=== PATIENT | male | born 1965 | race Caucasian/White ===

== ENCOUNTER → 2016-07-29 | Outpatient (CLI) | payer BC ==
--- NOTE | 2016-07-29 09:17 | DIAGNOSTIC IMAGING REPORT ---
ABDOMEN COMPLETE (US) CLINICAL HISTORY: ABD PAIN generalized abdominal pain COMPARISON STUDY: No previous studies for comparison. FINDINGS: The liver is slightly echogenic, K nonspecific finding most often seen in hepatic steatosis. There is presumed focal fatty sparing adjacent to the gallbladder. Multiple gallstones are visualized. There is no significant gallbladder wall thickening and no evidence of pericholecystic fluid. The pancreas is poorly visualized. Spleen measures 10.4 cm in length. The right kidney measures 12.9 cm in length. The left kidney measured 12.3 cm in length. There is no hydronephrosis. There is a possible duplex collecting system on the left. There is a 7 mm left renal cyst. The common bile duct measured 4 mm. No abnormalities of the IVC or aorta are visualized. IMPRESSION: 1. Nondiagnostic evaluation of the pancreas 2. Cholelithiasis. No evidence of ductal dilatation 3. Increased hepatic echogenicity, a nonspecific finding most often seen in hepatic steatosis Electronically signed by: Ashkan Laura M.D. 07/29/2016 9:15 AM Dictated Date/Time: 07/29/2016 9:13 AM
[2016-07-29 09:33] LABS: BASO % 0.5 %; BASO ABS # 0.03 K/uL (0-0.2); COMPLETE YES; EOS % 2.6 %; HEMATOCRIT 43.2 % (42-52); IG% 0.3 %; LYMPH % 25.6 %; LYMPH ABS # 1.69 K/uL (1.2-3.4); MEAN CELL VOLUME 86.2 fL (80-100); MEAN CORPUSCULAR HEMOGLOBIN 29.5 pg (25-34); MEAN CORPUSCULAR HGB CONC 34.3 g/dl (32-36); MEAN PLATELET VOLUME 10.7 fL (7.4-10.4); PLATELET COUNT 233 K/uL (130-400); RED BLOOD COUNT 5.01 M/uL (4.7-6.1); WHITE BLOOD COUNT 6.59 K/uL (4.8-10.8)
[2016-07-29 09:45] LABS: ALT/SGPT 35 U/L (12-78); AMYLASE 67 U/L (25-115); AST/SGOT 11 U/L (15-37); BLOOD UREA NITROGEN 17 mg/dl (7-18); BUN/CREATININE RATIO 15.1 (10-20); CARBON DIOXIDE 28 mmol/L (21-32); CHLORIDE 108 mmol/L (98-107); CHOLESTEROL 195 mg/dl (0-200); GLUCOSE 106 mg/dl (70-99); POTASSIUM 4.2 mmol/L (3.5-5.1); SODIUM 142 mmol/L (136-145); TRIGLYCERIDES 378 mg/dl (0-150); VERY LOW DENSITY LIPOPROT CALC 76 mg/dl
[2016-07-29 09:51] LABS: ALB/GLOB RATIO 1.2 (0.9-2); ALKALINE PHOSPHATASE 74 U/L (45-117); HDL CHOLESTEROL 39 mg/dl; LDL CHOLESTEROL CALCULATED 80 mg/dl
[2016-07-29 10:16] LABS: CALCIUM 9.4 mg/dl (8.5-10.1)
== END | disposition home or self-care (01) ==
LOC: C.ULTR 07:41
PROVIDERS: ATTEND Family Medicine
DX: R10.10 Upper abdominal pain, unspecified (principal); K80.20 Calculus of gallbladder without cholecystitis without obstruction

== ENCOUNTER → 2016-08-04 | Outpatient (CLI) | payer BC ==
[~2016-08-04] MED LIST: FEXOFENADINE HCL 60 MG TAB ONE; NURSING VERBAL MED ORDER ONE; OPTIRAY 320 IV PRN
--- NOTE | 2016-08-04 12:58 | DIAGNOSTIC IMAGING REPORT ---
ADDENDUM Addendum: It has come to my attention that the patient developed a "scratchy" throat following the administration of intravenous contrast. The patient was assessed by another radiologist. No edema or erythema was visualized. There was no shortness of breath. The patient was observed for one hour by the radiology nurse. There were no complications. The patient was discharged to home. Electronically signed by: Ashkan Laura M.D. 08/04/2016 2:19 PM Dictated Date/Time: 08/04/2016 2:[address] ABD/PELVIS IV AND ORAL CONT CLINICAL HISTORY: Postprandial left-sided upper abdominal pain COMPARISON STUDY: Ultrasound study dated 07/29/2016 TECHNIQUE: Following the IV administration of 94 mL of Optiray-320, CT scan of the abdomen and pelvis was performed from the lung bases to the proximal femurs. Images are reviewed in the axial, sagittal, and coronal planes. IV contrast was administered without complication. CT DOSE: 1133.37 mGycm FINDINGS: Lower chest: There are minimal basilar atelectatic changes. No pleural effusions are visualized. Liver: There is mild hepatic steatosis. No focal masses are visualized. Gallbladder: There is a 27 mm calcified gallstone. Spleen: Normal in size and attenuation. Pancreas: Unremarkable. Adrenal glands: Unremarkable. Kidneys: There is symmetric renal cortical enhancement. The kidneys are normal in size without hydronephrosis. Bowel: There are no transition zone to indicate bowel obstruction. The appendix is normal. There is no acute diverticulitis. Peritoneum: There is no intraperitoneal free air or abdominal ascites. There is a tiny fat-containing umbilical hernia. There is a fat-containing right inguinal hernia. Vasculature: The abdominal aorta is normal in course and caliber. Adenopathy: None. Pelvic viscera: There is borderline bladder wall thickening. Skeletal structures: No destructive osseous lesions are seen. IMPRESSION: 1. No evidence of bowel obstruction. No evidence of free air 2. Cholelithiasis 3. No acute inflammatory changes. Normal appendix. No evidence of acute diverticulitis 4. Fat-containing right inguinal hernia Electronically signed by: Ashkan Laura M.D. 08/04/2016 12:57 PM Dictated Date/Time: 08/04/2016 12:47 PM
== END | disposition home or self-care (01) ==
LOC: C.CTS 10:22
PROVIDERS: ATTEND Family Medicine
DX: R10.9 Unspecified abdominal pain (principal); K57.32 Diverticulitis of large intestine without perforation or abscess without bleeding; K80.20 Calculus of gallbladder without cholecystitis without obstruction; K40.90 Unilateral inguinal hernia, without obstruction or gangrene, not specified as recurrent

== ENCOUNTER → 2017-06-15 | Outpatient (CLI) | payer OTHER ==
--- NOTE | 2017-06-15 11:12 | DIAGNOSTIC IMAGING REPORT ---
R FOOT MIN 3 VIEWS ROUTINE CLINICAL HISTORY: 51 years-old Male presenting with RT HEEL PAIN. TECHNIQUE: Frontal, oblique, and lateral views of the right foot were obtained. COMPARISON: None. FINDINGS: Prominent enthesophytes at the insertion of the Achilles tendon and origin of the plantar fascia. No acute fracture or malalignment. No other evidence of degenerative change. No radiographic soft tissue abnormality. IMPRESSION: 1. Prominent enthesophytes at the insertion of the Achilles tendon and origin of the plantar fascia. 2. No acute osseous injury. Electronically signed by: aRh Osorio M.D. 06/15/2017 11:11 AM Dictated Date/Time: 06/15/2017 11:10 AM
== END | disposition home or self-care (01) ==
LOC: C.RADBC 10:57
PROVIDERS: ATTEND Family Medicine
DX: M79.671 Pain in right foot (principal)

== ENCOUNTER → 2017-06-21 | Outpatient (CLI) | payer OTHER ==
--- NOTE | 2017-06-21 08:50 | DIAGNOSTIC IMAGING REPORT ---
L HEEL MIN 2 VIEWS CLINICAL HISTORY: Left heel pain. COMPARISON: None FINDINGS: No fracture within the left calcaneus is noted. There is moderate plantar calcaneal spurring as well as moderate posterior calcaneal spurring. There is irregularity of the posterior calcaneal spur. IMPRESSION: 1. No left calcaneal fracture. 2. Calcification/spurring of the posterior calcaneus at the insertion of the Achilles which may reflect insertional calcification tendinopathy. 3. Moderate plantar calcaneal spurring. Electronically signed by: Vijay Nelson M.D. 06/21/2017 8:49 AM Dictated Date/Time: 06/21/2017 8:46 AM
== END | disposition home or self-care (01) ==
LOC: C.RADBC 08:28
PROVIDERS: ATTEND Family Medicine
DX: M79.672 Pain in left foot (principal); M77.32 Calcaneal spur, left foot